=== PATIENT | female | born 1965 | race Hispanic/Latino ===

== ENCOUNTER 2018-09-08 15:17 | Emergency (ER) | payer OTHER ==
[~2018-09-08] VITALS: Ht 157.5 cm; Wt 88.9 kg
--- OUTSIDE RECORDS SUMMARY | 2018-09-08 15:19 | XMS REPORT | Clinical Summary ---
Author Author [facility] Address Unknown Phone Unavailable Care Team Providers Care Cigarette Catcher Name Role Phone Montserrat Ogden MD PCP Allergies Comments Active Allergy Reactions Severity Noted Date WASH CLOTH Chlorhexidine Rash Low 07/09/2016 Rosuvastatin Itching 02/17/2017 Medications End Date Status Medication Sig Dispensed Refills Start Date Active furosemide (LASIX) 20 mg Take 20 mg by 0 tablet mouth daily as needed (swelling/sissy ma). Active omeprazole (PriLOSEC) 20 Take 20 mg by 0 MG capsule mouth daily. Active aspirin (ECOTRIN) 81 MG Take 81 mg by 0 enteric coated tablet mouth daily. Active valsartan (DIOVAN) 160 MG Take 160 mg 0 tablet by mouth daily. Active metoprolol succinate XL Take 100 mg 0 (TOPROL-XL) 100 mg 24 hr by mouth tablet daily. Active isosorbide dinitrate Take 10 mg by 0 (ISORDIL) 10 MG tablet mouth 2 (two) times a day. Active nitroglycerin (NITROSTAT) Place 0.4 mg 0 0.4 MG SL tablet under the tongue every 5 (five) minutes as needed for chest pain. Active clopidogrel (PLAVIX) 75 Take 75 mg by 0 mg tablet mouth daily. Active glyburide-metformin Take 1 tablet 0 (GLUCOVANCE) 5-500 mg per by mouth 2 tablet (two) times a day with meals. Active Problems Problem Noted Date Unstable angina 02/17/2017 Chest pain 07/05/2016 Coronary artery disease Encounters Care Team Description Date Type Specialty Lakesha Ogden MD Angor pectoris (HCC) (Primary Dx) 08/06/2018 Transcribe Access Orders Montserrat Ogden MD 08/06/2018 Transcribe Access Orders after 09/07/2017 Immunizations Name Dates Previously Given Next Due FLUCELVAX QUAD PF (0.5mL 02/18/2017 syringe) INFLUENZA QUAD PF 07/10/2016 Social History Date Tobacco Use Types Packs/Day Years Used Never Smoker Alcohol Use Drinks/Week oz/Week Comments No Sex Assigned at Date Recorded Not on file Industry Job Start Date Occupation Not on file Not on file Not on file Travel End Travel History Travel Start No recent travel history available. Last Filed Vital Signs Not on file Plan of Treatment Health Maintenance Due Date Last Done Comments CERVICAL CANCER SCREENING 1985 BREAST CANCER SCREENING 2014 COLON CANCER SCREENING 2014 SHINGLES VACCINES (#1) 2014 INFLUENZA VACCINE 12/17/2018 02/18/2017, 07/10/2016 Implants Device Identifier Shelf Expiration Date Model / Serial / Lot Implanted Type Area Manufactur er 09/15/2017 [id number] / / [id number] Device Vasclr Clsr Vasoactive Cardiovasc N/A: N/A Intstnl Peptd 6fr Angio-Seal - ular [id number] Implants Implanted: 11/29/2016 (Quantity not on file) [id number] / / Stent System 3.0 X 18mm Resolute Coronary N/A: N/A [employer] Rx Coronary - [id number] Stents [place] - Implanted: 11/29/2016 (Quantity not CARDIAC on file) RYHTYM MGMT Results Not on fileafter 09/07/2017 Insurance Payer Benefit Subscriber ID Type Phone Address Plan / Group [employer] xxxxxxxxxx Exchange [employer] E EXCHANGE Advance Directives Patient has advance care planning documents on file. For more information, varghese charles contact: Darrin Fisher [address] [place] [address]
[2018-09-08 16:19] LABS: BILIRUBIN,URINE NEGATIVE (NEGATIVE); CLARITY,URINE SL CLOUDY (CLEAR); COLOR,URINE YELLOW (YELLOW); KETONES,URINE NEGATIVE (NEGATIVE); LEUKOCYTE ESTERASE ,URINE NEGATIVE (NEGATIVE); NITRITE,URINE NEGATIVE (NEGATIVE); PROTEIN,URINE DIPSTICK TRACE (NEGATIVE); URINE UROBILINOGEN 0.2 mg/dL (0.2 - 1)
[2018-09-08 16:29] LABS: BACTERIA,URINE MANY /HPF; EPITHELIAL CELLS,URINE FEW /LPF; RBC,URINE 0-5 /HPF (0-5)
[2018-09-08] MEDS ORDERED: SODIUM CHLORIDE 0.9% 1000ML 1,000 ML IV ONE (16:45)
[2018-09-08] MEDS ORDERED: SODIUM CHLORIDE 0.9% 1000ML 1,000 ML ONE (16:47)
[2018-09-08 16:55] LABS: BASOPHILS # (AUTO) 0.1 (0.0-0.1); BASOPHILS % 0.7 % (0.0-1.0); EOSINOPHILS # (AUTO) 0.1 (0.0-0.4); EOSINOPHILS % 0.9 % (0.0-6.0); HEMATOCRIT 37.5 % (34.2-44.1); HEMOGLOBIN 12.4 g/dL (12.0-16.0); LYMPHOCYTES # (AUTO) 3.8 (1.0-3.2); LYMPHOCYTES % 41.2 % (18.0-39.1); MEAN CORPUSCULAR HGB CONC 33.1 g/dL (31-35); MEAN CORPUSCULAR VOLUME 87.8 fL (81-99); MONOCYTES # (AUTO) 0.6 (0.2-0.8); MONOCYTES % 6.1 % (4.4-11.3); NEUTROPHILS # (AUTO) 4.7 (2.1-6.9); NEUTROPHILS % 50.9 % (38.7-80.0); PLATELET COUNT 252 x10e3/uL (140-360); RED BLOOD COUNT 4.27 x10e6/uL (3.6-5.1); RED CELL DISTRIBUTION WIDTH 13.4 % (11.7-14.4)
[2018-09-08] MEDS ORDERED: ONDANSETRON HCL INJ 2MG/ML 2ML 2 MG/ML VIAL IV STA (16:58)
[2018-09-08 17:18] LABS: ALANINE AMINOTRANSFERASE 28 IU/L (0-55); ALBUMIN 3.5 g/dL (3.5-5.0); ALKALINE PHOSPHATASE 86 IU/L (40-150); ANION GAP 9.1 mmol/L (8-16); BLOOD UREA NITROGEN 10 mg/dL (7-26); BUN/CREATININE RATIO 13 (6-25); CALCIUM 9.4 mg/dL (8.4-10.2); CARBON DIOXIDE 24 mmol/L (22-29); CHLORIDE 107 mmol/L (98-107); CREATININE, SERUM 0.78 mg/dL (0.57-1.11); EST GLOMERULAR FILTRATION RATE > 60 ML/MIN (60-); GLUCOSE 200 mg/dL (74-118); POTASSIUM 4.1 mmol/L (3.5-5.1); SODIUM 136 mmol/L (136-145)
[2018-09-08] MEDS ORDERED: KETOROLAC TROMETHAMINE 30 MG/ML VIAL IV NR (17:45)
[2018-09-08] MEDS ORDERED: HYDROCODONE/APAP 10MG-325MG TAB PO NR (17:45)
--- NOTE | 2018-09-08 18:18 | Diagnostic Imaging Report ---
EXAMINATION: CT of the abdomen and pelvis without contrast. TECHNIQUE: Helical CT images of the abdomen and pelvis were performed from the lung bases to the lesser trochanters. No intravenous contrast was given per renal stone protocol. Coronal and sagittal reformatted images were obtained.Dose modulation, iterative reconstruction, and/or weight based adjustment of the mA/kV was utilized to reduce the radiation dose to as low as reasonably achievable. COMPARISON: None. CLINICAL HISTORY:Flank pain DISCUSSION: ABSENCE OF INTRAVENOUS CONTRAST DECREASES SENSITIVITY FOR DETECTION OF FOCAL LESIONS AND VASCULAR PATHOLOGY. ABDOMEN/PELVIS: LOWER THORAX: Unremarkable. HEPATOBILIARY:No focal hepatic lesions. No biliary ductal dilation. Calcified gallstones. SPLEEN: No splenomegaly. PANCREAS: No focal masses or ductal dilatation. ADRENALS: No adrenal nodules. KIDNEYS/URETERS: No hydronephrosis, stones, or solid mass lesions. PELVIC ORGANS/BLADDER: The bladder is normal. PERITONEUM/RETROPERITONEUM: No free air or fluid. LYMPH NODES: No intra-abdominal,retroperitoneal, pelvic or inguinal lymphadenopathy. VESSELS: The celiac trunk,superior and inferior mesenteric and bilateral renal arteries are patent The portal, superior mesenteric and splenic veins are patent. GI TRACT: No distention or wall thickening. Appendix is normal. BONES AND SOFT TISSUES: No bony destructive lesions. No soft tissue abnormalities. IMPRESSION: No acute noncontrast CT finding. Signed by: Dr. Prabhjot Hugo M.D. on 09/08/2018 6:15 PM
[2018-09-08 18:40] VITALS: BP 133/75
== END 2018-09-08 18:44 | disposition home or self-care (01) ==
LOC: ER 15:17
DX: M54.5 Low back pain (principal); S39.012A Strain of muscle, fascia and tendon of lower back, initial encounter; R19.7 Diarrhea, unspecified; I10 Essential (primary) hypertension; E11.9 Type 2 diabetes mellitus without complications; I25.10 Atherosclerotic heart disease of native coronary artery without angina pectoris; I25.2 Old myocardial infarction; Z95.1 Presence of aortocoronary bypass graft
CPT/HCPCS: 36415; 74176; 80053; 81001; 81025; 83690; 85025; 99284; J1885; J2405; J7030